=== PATIENT | male | born 1940 | race Caucasian/White ===

== ENCOUNTER → 2017-06-04 | Outpatient (CLI) | payer OTHER ==
[~2017-06-04] MED LIST: ASPIRIN EC81 M1 PO; CELEBREX 200 M200 MG PO; COUMADIN 2 MG TA2 M1; COUMADIN 5 MG TA5 M1 PO; FISH OIL 1,2001 EAC4 PO; HYDROCODON-ACE1 EAC7 PO; MOBIC7.5 MG PO; PERCOCET 10-321 EACH; PERCOCET 10-321 EACH PO
== END ==
LOC: RAD 08:33
DX: G47.30 Sleep apnea, unspecified (principal); R06.00 Dyspnea, unspecified

== ENCOUNTER → 2017-06-20 | Outpatient (CLI) | payer OTHER | LOC: CAT 07:46 | DX: Z13.6 Encounter for screening for cardiovascular disorders (principal) ==